=== PATIENT | male | born 1970 | race Caucasian/White ===

== ENCOUNTER 2022-11-28 19:03 | Inpatient (IN) | payer MEDICAID ==
[~2022-11-28] VITALS: Ht 160 cm; Wt 100.7 kg
[2022-11-28 19:15] VITALS: BP 150/142
--- NOTE | 2022-11-28 19:26 | NUR ---
PT TO BED #5
[2022-11-28] MEDS ORDERED: NACL 0.9% 1,000 ML IV ONE ×2 (19:45→22:55)
[2022-11-28] MEDS ORDERED: LORazepam 2 MG/ML VIAL IVP ONE ×2 (19:45→21:15)
[2022-11-28] MEDS ORDERED: MORPHINE SULFATE 4 MG/ML SYR IVP ONE (19:45)
--- NOTE | 2022-11-28 19:45 | NUR ---
PT C/O POSSIBLE SPIDER BITE. UNK TYPE OF SPIDER. PT STATES HE WAS BITTEN WITHIN THE LAST HOUR AND RLE BECAME RED AND SWOLLEN. PT ALSO C/O CHILLS. PMHX: NONE NKDA
--- NOTE | 2022-11-28 20:00 | NUR ---
SWAB FOR COVID IS SENT TO THE LAB
[2022-11-28 20:19] LABS: HEMATOCRIT 46.4 % (36-52); HEMOGLOBIN 15.8 g/dL (12.0-18.0); MEAN CORPUSCULAR HEMOGLOBIN 32 pg (27-31); MEAN CORPUSCULAR HGB CONC 34 g/dL (33-37); MEAN CORPUSCULAR VOLUME 92.8 fL (80-94); PLATELET COUNT (AUTO) 259 K/uL (140-450); RED CELL DISTRIBUTION WIDTH 13.7 % (11.6-13.7); WHITE BLOOD COUNT (AUTO) 17.9 K/uL (4.8-10.8)
[2022-11-28 20:32] LABS: ANION GAP 9.1 (8-16); CARBON DIOXIDE 27.6 mmol/L (21-32); CREATININE 1.1 mg/dL (0.6-1.3); POTASSIUM 3.7 mmol/L (3.5-5.1)
[2022-11-28] MEDS ORDERED: ACETAMINOPHEN EXTRA STRENGTH 500 MG TAB PO ONE (20:35)
[2022-11-28] MEDS ORDERED: KETOROLAC 30 MG/ML VIAL IVP ONE (20:35)
[2022-11-28 20:58] LABS: BASOPHILS % (MANUAL) 1 % (0-2); EOSINOPHILS % (MANUAL) 0 % (0-4); LYMPHOCYTES % (MANUAL) 14 % (20-46); MONOCYTES % (MANUAL) 6 % (5-12)
[2022-11-28 21:26] LABS: THYROID STIMULATING HORMONE 0.39 uIU/mL (0.34-3.74)
--- NOTE | 2022-11-28 21:40 | NUR ---
spoke to the son that pt is not taking regualr med at home
--- NOTE | 2022-11-28 21:40 | NUR ---
2010 son at the bed side
--- NOTE | 2022-11-28 22:14 | NUR ---
ice packs are placed since pt is sweating and tachy 112
[2022-11-29 00:25] LABS: HEMATOCRIT 43.6 % (36-52); HEMOGLOBIN 14.6 g/dL (12.0-18.0); MEAN CORPUSCULAR HEMOGLOBIN 31 pg (27-31); MEAN CORPUSCULAR HGB CONC 34 g/dL (33-37); MEAN CORPUSCULAR VOLUME 93.3 fL (80-94); PLATELET COUNT (AUTO) 236 K/uL (140-450); RED BLOOD CELL COUNT(AUTO) 4.67 MIL/uL (4.20-6.10); RED CELL DISTRIBUTION WIDTH 13.9 % (11.6-13.7); WHITE BLOOD COUNT (AUTO) 22.9 K/uL (4.8-10.8)
[2022-11-29] MEDS ORDERED: VANCOMYCIN 1,000 MG in DEXTROSE 5% 250 ML IV ONE (01:00)
[2022-11-29] MEDS ORDERED: PIPERACILLIN/TAZOBACTAM 3.375 GM in DEXTROSE 5% 50 ML IV ONE (01:00)
[2022-11-29 01:11] LABS: EOSINOPHILS % (MANUAL) 1 % (0-4); LYMPHOCYTES % (MANUAL) 5 % (20-46); MONOCYTES % (MANUAL) 9 % (5-12)
[2022-11-29] MEDS ORDERED: PIPERACILLIN/TAZOBACTAM 3.375 GM VIAL IV ONE (01:18)
[2022-11-29] MEDS ORDERED: VANCOMYCIN 1,000 MG VIAL ONE (01:19)
[2022-11-29] MEDS ORDERED: MORPHINE SULFATE 4 MG/ML SYR IVP PRN (01:45)
[2022-11-29] MEDS ORDERED: HYDROcodone/APAP 5/325 MG 1 TAB TAB PO PRN (01:45)
--- NOTE | 2022-11-29 02:00 | NUR ---
pt feels better.
--- NOTE | 2022-11-29 02:20 | NUR ---
RECEIVED TELEPHONE REPORT FROM [facility] NURSE ENDORSED: 52 YEAR OLD WELSH SPEAKING MALE WITH C/C CHILL, FEVER AND RIGHT LEG PAIN PRESENTED TO ER ACCOMPANIED BY SON SECURITIES AND REAL ESTATE DIRECTOR. DX: "RIGHT ANKLE CELLULITIS". HX: NOTHING, NO MEDICAL, NO SURGICAL. NKA. A/OX4. SR ON MONITOR. LUNGS CLEAR ON RA, 02 SAT 95%.CONTINENT BOWEL AND BLADDER. 20 [address]. SKIN INTACT BUT SWOLLEN AND SLUSHED ON RLE. ATIVAN RECEIVED X2, NS BOLUS. NO HOME MEDS. NARRATIVE IS PT IS A LOG ROLLER AND VERY ACTIVE. ON TUESDAY EVENING UPON GETTING BEHIND THE WHEEL OF HIS TRUCK HE FELT A SENSATION TO RIGHT LEG. HE WONDERED IF AN INSECT HAD BITTEN HIM YET HE SAW NOTHING. SHORTLY THEREAFTER SEVER CHILLS, SHAKING AND FEVER ENSUED. PT TO BE RECEIVED TO ROOM 107B PER [facility].
[2022-11-29 02:30] VITALS: BP 127/68
--- NOTE | 2022-11-29 02:43 | NUR ---
Patient will be admitted to care of [facility]. Admited to [facility]. Will go to room 107 B. Belongings list completed. Report to irena lamar.
[2022-11-29 04:00] VITALS: BP 126/71
--- NOTE | 2022-11-29 04:00 | NUR ---
0230 ADMISSION TO MED SURG 107B PT RECEIVED VIA GURNEY. AMBULATED FROM STRETCHER TO BATHROOM. NOTED GAIT VERY UNSTEADY WITH HEAD LEADING FORWARD AND TOTALLY OFF BALANCE. SON AND NURSE ASSISTING. VOIDED IN BATHROOM. ASSISTED TO BED. INSTRUCTED PATIENT WITH SON INTERPRETING NO BRP OR GETTING OOB WITHOUT ASSISTANCE FROM STAFF IT IS POSSIBLE THAT ALTHOUGH GAIT BASELINE IS STABLE, WE MUST DETERMINE WHY HIS IS UNSTEADY NOW. COULD BE EFFECTS OF MEDICINE RECEIVED IN ER OR POSSIBLY EFFECTS FROM INSECT BITE. EITHER WAY IT COULD BE HAZARDOUS TO HIMSELF TO GET UP UNASSISTED BY STAFF. STATED UNDERSTOOD. ADMISION ASSESMENT BEGAN WITH SON INTERPRETING. RLE WITH +2 EDEMA PITTING, FLUSHED AND WARM. FOB ELEVATED. STATED COMFORT BEST WITHOUT PILLOW UNDERNEATH. PAIN 4/10-6/10 WITH MUCH DESIRED RELIEF COMPARATIVELY SPEAKING. OBSERVED PT IMMEDIATELY SNORING WITH MOUTH OPEN AFTER PHYSICAL ASSESSMENT COMPLETED. SON CONTINUED AT BEDSIDE TO COMPLETE PROCESS AND STAYED AT BEDSIDE TO ASSURE PT COMPLIANCE IN NOT GETTING OUT OF BED UNASSISTED. RECORDS SHOW DX SPIDER BITE. OBSERVATION OF RIGHT ANKLE SHOWS LESS SWELLING AT ANKLE AND MORE NEAR SUPPER [place] AREA. RIGHT TOES WARM, WIGGLE WELL WITH CAPILLARY REFILL <3SEC. AND SENSATION INTACT. 0245 ER RETURNED WITH SPIKED VANCOMYCIN TO BE COMPLETED AT 165ML/HR. PRESENTLY INFUSING. CONT. TO MONITOR AND ASSIST.
--- NOTE | 2022-11-29 06:30 | NUR ---
PHARMACY PHONED 0500 ANCEF WILL ARRIVE TO FLOOR LATE. INFUSE UPON ARRIVAL AND 2ND DOSE TO INFUSE AT 1300. WILL ENDORSE TO A.M. NURSE.
--- NOTE | 2022-11-29 07:30 | NUR ---
RELINQUISHED CARE OF PT AT THIS TIME. SON REMAINS AT BEDSIDE. PT FULLY AWAKE AND INTERACTING. NO ACUTE DISTRESS VOICED OR NOTED. NO FURTHER CHANGES TO RLE NOTED AT THIS TIME.
--- NOTE | 2022-11-29 07:30 | NUR ---
HAND-OFF REPORT TO AM NURSE RN. ENDORSED: PHARMACY CALLED [facility] DUE FOR 0500 WILL BE ARRIVING LATE ORDER WAS INADVERTENTLY OVERLOOKED. UPON ARRIVAL INFUSE IMMEDIATELY. 2ND DOSE TO BE INFUSED AT 1300.
--- NOTE | 2022-11-29 08:59 | NUR ---
PATIENT HAS BEEN SCREENED AND CATEGORIZED MODERATE NUTRITION RISK. PATIENT WILL BE SEEN WITHIN 3-5 DAYS OF ADMISSION. 12/02/22-12/04/[address]
[2022-11-29] MEDS ORDERED: ACETAMINOPHEN 325 MG TAB PO PRN (10:00)
[2022-11-29] MEDS ORDERED: ONDANSETRON 4 MG/2 ML VIAL IVP PRN (10:00)
[2022-11-29] MEDS ORDERED: MAG SULF 2000 MG/WATER PREMIX 50 ML IV PRN (10:00)
[2022-11-29] MEDS ORDERED: POTASSIUM CHLORIDE 10 MEQ TABER PO PRN (10:00)
[2022-11-29] MEDS ORDERED: HYDROcodone/APAP 7.5/325 MG 1 TAB PO PRN (10:00)
[2022-11-29] MEDS ORDERED: VANCOMYCIN PER PHARMACY MC PRN (10:00)
[2022-11-29] MEDS ORDERED: INSULIN LISPRO SLIDING SCALE 100 UNITS/ML VIAL SUBQ PRN (10:15)
[2022-11-29] MEDS ORDERED: DEXTROSE 50% 50 ML SYR IVP PRN (10:15)
[2022-11-29] MEDS: NACL 0.9% 1,000 ML IV SCH ×3 (10:43→22:33)
[2022-11-29] MEDS: BLOOD GLUCOSE MONITORING 1 DEV DEV FS SCH ×3 (11:30→21:35)
[2022-11-29 11:52] LABS: PROTHROMBIN TIME 11.3 secs (10.8-13.4)
[2022-11-29 12:00] VITALS: BP 111/72
[2022-11-29 12:51] LABS: AMYLASE 43 U/L (25-115); FREE T4 (FREE THYROXINE) 0.75 ng/dL (0.76-1.46); HDL CHOLESTEROL 71 mg/dL (40-60); LDL (CALC) 63 mg/dL (60-100); LIPASE 86 U/L (73-393); THYROID STIMULATING HORMONE 0.39 uIU/mL (0.34-3.74); TRIGLYCERIDES 44 mg/dL (30-150)
[2022-11-29] MEDS: VANCOMYCIN 1.25GM PREMIX 250 ML IV SCH (13:00)
[2022-11-29] MEDS: PIPERACILLIN/TAZOBACTAM 3.375 GM in DEXTROSE 5% 50 ML IV SCH ×2 (13:51→19:21)
--- NOTE | 2022-11-29 13:53 | NUR ---
DC [age] YRS OLD MALE PATIENT WAS ADMITTED FROM HOME WITH A DX OF INSECT BITE CELLULITIS. PATIENT HAS NO MEDICAL HISTORY. 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 VENOUS DOPPLER NO DVT. ADMINISTERED IVF, IV ABX VANCO AND ZOSYN. BLOOD CULTURE PENDING. CONSULTED WITH ID. DC PLAN TO GO HOME WHEN STABLE. CM TO FOLLOW
[2022-11-29] MEDS ORDERED: ECOTRIN 81 MG TABEC PO SCH (14:46)
[2022-11-29 16:00] VITALS: BP 121/72
[2022-11-29 19:23] LABS: APPEARANCE,URINE CLEAR (CLEAR); BILIRUBIN,URINE NEGATIVE (NEGATIVE); BLOOD, URINE NEGATIVE (NEGATIVE); COLOR,URINE YELLOW (YELLOW); LEUKOCYTE ESTERASE ,URINE NEGATIVE (NEGATIVE); NITRITE, URINE NEGATIVE (NEGATIVE); PH,URINE 7.5 (5.0-9.0); UGLUCOSE NEGATIVE (NEGATIVE)
[2022-11-29 19:34] LABS: BARBITURATE, URINE NEGATIVE ng/ml (NEG <=200); BENZODIAZEPINE, URINE POSITIVE ng/mL (NEG <=200); CANNABINOID, URINE NEGATIVE ng/mL (NEG <=50); COCAINE, URINE NEGATIVE ng/mL (NEG <=300); OPIATE, URINE NEGATIVE ng/mL (NEG <=2000); PHENCYCLIDINE SCREEN,URINE NEGATIVE ng/mL (NEG <=25)
[2022-11-29 20:00] VITALS: BP 128/60
--- NOTE | 2022-11-29 20:00 | NUR ---
DENIES PAIN , R LEG REDNESS , SWOLEN , WILL CONT. TO MONITOR . IVF INFUSING WELL , AFEBRILE .
[2022-11-29] MEDS: DOCUSATE SODIUM 100 MG GELCAP PO SCH (21:28)
[2022-11-30] VITALS: BP 125/66
--- NOTE | 2022-11-30 | NUR ---
ROUNDS , DENIES PAIN , REMINDS HIM TO ELEVATE THE R LEG WHILE ON BED - PT. VERBALIZES UNDERSTANDING
[2022-11-30] MEDS: VANCOMYCIN 1.25GM PREMIX 250 ML IV SCH (01:03)
--- NOTE | 2022-11-30 04:00 | NUR ---
ROUNDS , NO S/SX OF ACUTE DISTRESS NOTED , DENIES PAIN , WILL CONT. TO MONITOR
[2022-11-30] MEDS: NACL 0.9% 1,000 ML IV SCH (06:00)
--- NOTE | 2022-11-30 06:00 | NUR ---
IV SITE INFILTRATED , REMOVE IV NEEDLE , NEEDLE INTACT , MINIMAL BLEEDING . WILL CONT. TO MONITOR
[2022-11-30] MEDS: BLOOD GLUCOSE MONITORING 1 DEV DEV FS SCH (06:19)
--- NOTE | 2022-11-30 06:20 | NUR ---
NEW IV SITE NEEDLE INSERTED G22 ON R ARM - MIN. BLEEDING , PROCEDURE TOLERATED WELL BY THE PT , WILL CONT. TO MONITOR .
[2022-11-30 06:39] LABS: BASOPHILS % (AUTO) 0.3 % (0.0-2.0); EOSINOPHILS # (AUTO) 0.2 K/uL (0-0.4); EOSINOPHILS % (AUTO) 1.8 % (0.0-4.0); HEMATOCRIT 41.9 % (36-52); LYMPHOCYTES % (AUTO) 16.2 % (20.5-51.1); MEAN CORPUSCULAR HEMOGLOBIN 31 pg (27-31); MEAN CORPUSCULAR HGB CONC 33 g/dL (33-37); MEAN CORPUSCULAR VOLUME 93.8 fL (80-94); MONOCYTES # (AUTO) 1.4 K/uL (0.8-1.0); MONOCYTES % (AUTO) 10.9 % (1.7-9.3); NEUTROPHILS # (AUTO) 8.9 K/uL (1.8-7.7); NEUTROPHILS % (AUTO) 70.8 % (42.2-75.2); PLATELET COUNT (AUTO) 238 K/uL (140-450); RED BLOOD CELL COUNT(AUTO) 4.47 MIL/uL (4.20-6.10); WHITE BLOOD COUNT (AUTO) 12.6 K/uL (4.8-10.8)
[2022-11-30 07:02] LABS: ANION GAP 11.1 (8-16); CARBON DIOXIDE 24.8 mmol/L (21-32); CREATININE 0.8 mg/dL (0.6-1.3); MAGNESIUM 2.2 mg/dL (1.8-2.4); PHOSPHORUS 3.1 mg/dL (2.5-4.9); POTASSIUM 3.9 mmol/L (3.5-5.1)
--- NOTE | 2022-11-30 07:33 | NUR ---
ENDORSED PT FOR CONT. OF CARE . PT IS AWAKE .
[2022-11-30 08:00] VITALS: BP 116/77
[2022-11-30] MEDS: DOCUSATE SODIUM 100 MG GELCAP PO SCH (08:34)
[2022-11-30] MEDS ORDERED: PANTOPRAZOLE 40 MG INJ VIAL IVP SCH (09:00)
[2022-11-30] MEDS ORDERED: ATORVASTATIN 20 MG TAB PO SCH (09:00)
[2022-11-30] MEDS ORDERED: ECOTRIN 81 MG TABEC PO SCH (09:00)
[2022-11-30] MEDS ORDERED: ATOR20TA40 PO (10:19)
[2022-11-30] MEDS ORDERED: CLIN300C2 PO (10:19)
[2022-11-30] MEDS ORDERED: ASPI-1856 PO (10:19)
[2022-11-30] MEDS ORDERED: PANT40EC PO (10:20)
[2022-11-30 11:38] VITALS: BP 116/77
== END 2022-11-30 12:20 | disposition home or self-care (01) | DRG 720 ==
LOC: MED 19:03 → MTU 11-29 01:51
DX: A41.9 Sepsis, unspecified organism (principal); E87.1 Hypo-osmolality and hyponatremia; L03.115 Cellulitis of right lower limb; T63.311A Toxic effect of venom of black widow spider, accidental (unintentional), initial encounter; I73.9 Peripheral vascular disease, unspecified; Z20.822 Contact with and (suspected) exposure to COVID-19; R73.03 Prediabetes; Y92.89 Other specified places as the place of occurrence of the external cause
CPT/HCPCS: 36415; 71045; 80048; 80305; 81003; 82140; 82150; 82550; 83036; 83605; 83690; 83735; 83880; 84100; 84439; 84443; 84484; 85025; 85610; 85730; 87040; 87081; 87086; 90471; 90715; 93925; 93970; 96361; 96365; 96367; 96375; 96376; 99291; C9113; J0690; J1644; J1815; J1885; J2060; J2270; J2543; J3370; J3372; J7060; Q0092